=== PATIENT | male | born 1950 | race Caucasian/White ===

== ENCOUNTER → 2017-04-18 | Outpatient (CLI) | payer OTHER | LOC: BMCIMAGING 11:03 | PROVIDERS: ATTEND Podiatrist Foot & Ankle Surgery | DX: M19.071 Primary osteoarthritis, right ankle and foot (principal) ==

== ENCOUNTER 2018-07-18 11:10 | Day surgery (SDC) | payer OTHER ==
[2018-07-18] MEDS ORDERED: LIDOCAINE 1% 300 MG/30 ML SDV ONE (11:26)
[2018-07-18] MEDS ORDERED: BUPIVACAINE 0.5% 30 ML SDV ONE (11:27)
[2018-07-18] MEDS ORDERED: LR 1,000 ML IV ONE (11:37)
[2018-07-18] MEDS ORDERED: ceFAZolin 2 GM/DEXTROSE 100 ML IV ONE (12:31)
[2018-07-18] MEDS ORDERED: MIDAZOLAM 2 MG/2 ML VIAL IVP ONE (12:44)
--- NOTE | 2018-07-18 12:44 | PDANEPAE ---
ANE History of Present Illness here for open l IHR ANE Past Medical History - Cardiovascular History Hx Hypertension: No Hx Arrhythmias: No Hx Chest Pain: No Hx Coronary Artery / Peripheral Vascular Disease: No Hx CHF / Valvular Disease: No Hx Palpitations: No - Pulmonary History Hx COPD: No Hx Asthma/Reactive Airway Disease: No Hx Recent Upper Respiratory Infection: No Hx Oxygen in Use at Home: No Hx Sleep Apnea: No - Neurologic History Hx Cerebrovascular Accident: No Hx Seizures: No Hx Dementia: No - Endocrine History Hx Diabetes: No - Renal History Hx Renal Disorders: No - Liver History Hx Hepatic Disorders: No - Neurological & Psychiatric Hx Hx Neurological and Psychiatric Disorders: No - Cancer History Hx Cancer: No - Congenital Disorder History Hx Congenital Disorders: No - GI History Hx Gastrointestinal Disorders: No - Chronic Pain History Chronic Pain: No - Surgical History Prior Surgeries: Bicep tendon repair. Meniscus L knee. Appendectomy ANE Review of Systems Review of systems is: negative Review of Systems: - Exercise capacity Exercise capacity: >=4 METS METS (RN): 6 METS ANE Patient History - Allergies Allergies/Adverse Reactions: No Known Allergies Allergy (Unverified 07/18/18 11:54) - Home Medications Home medications: home medication list seen and reviewed Home Medications: Multivitamins 07/18/18 [Last Taken 07/16/18] [place] 07/18/18 [Last Taken 07/16/18] Trace Minerals 07/18/18 [Last Taken 07/16/18] - NPO status NPO Status: no food or drink >8 hours NPO Since - Liquids (Date): 07/18/18 NPO Since - Liquids (Time): 09:00 NPO Since - Solids (Date): 07/17/18 NPO Since - Solids (Time): 12:00 - Anes Hx Anes Hx: no prior problems - Smoking Hx Smoking Status: Never smoked - Family Anes Hx Family Hx Anesthesia Complications: None. ANE Labs/Vital Signs - Vital Signs Vital Signs: reviewed preoperatively; see RN documention for details Blood Pressure: 140/90 Heart Rate: 74 Respiratory Rate: 18 O2 Sat (%): 93 Height: 177.8 cm Weight: 79.379 kg ANE Physical Exam - Airway Neck exam: FROM Mallampati Score: Class 1 Mouth exam: normal dental/mouth exam - Pulmonary Pulmonary: no respiratory distress, clear to auscultation - Cardiovascular Cardiovascular: regular rate and rhythym - ASA Status ASA Status: II ANE Anesthesia Plan Anesthesia Plan: GA w LMA
[2018-07-18] MEDS ORDERED: PROPOFOL/EMULSION 500 MG/50 ML BOTTLE IV ONE (13:00)
[2018-07-18] MEDS ORDERED: fentaNYL 100 MCG/2 ML INJ ONE (13:03)
[2018-07-18] MEDS ORDERED: PROPOFOL 200 MG/20 ML VIAL ONE (13:24)
[2018-07-18] MEDS ORDERED: DEXAMETHASONE 4 MG/ML VIAL ONE (13:26)
[2018-07-18] MEDS ORDERED: ONDANSETRON 4 MG/2 ML VIAL ONE (13:26)
[2018-07-18] MEDS ORDERED: NS 500 ML IV PRN (13:44)
[2018-07-18] MEDS ORDERED: oxyCODONE IR 5 MG TAB PO PRN (13:44)
[2018-07-18] MEDS ORDERED: DEXAMETHASONE 4 MG/ML VIAL IVP PRN (13:44)
[2018-07-18] MEDS ORDERED: NALOXONE HCL 0.4 MG/ML INJ IVP PRN (13:44)
[2018-07-18] MEDS ORDERED: ACETAMINOPHEN 500 MG TAB PO PRN (13:44)
[2018-07-18] MEDS ORDERED: ONDANSETRON 4 MG/2 ML VIAL IVP PRN (13:44)
[2018-07-18] MEDS ORDERED: HYDROCODONE/APAP 5/325 TAB PO PRN (13:44)
[2018-07-18] MEDS ORDERED: HYDROmorphONE/DILAUDID 1 MG/ML INJ IVP PRN (13:44)
[2018-07-18] MEDS ORDERED: fentaNYL 100 MCG/2 ML INJ IVP PRN (13:44)
[2018-07-18] MEDS ORDERED: PHENYLEPHRINE HCL 100 MCG/ML SYR ONE (14:22)
--- NOTE | 2018-07-18 14:27 | POSTOPPROG ---
Post Op Note Date of Operation: 07/18/18 Surgeon: Woody Dean Anesthesiologist: Dr. Roberts Anesthesia: LMA Pre-op Diagnosis: Incarcerated LIH Post-op Diagnosis: same Procedure: Open LIHR Findings: Incarc sigmoid, viable Inf/Abcess present in the surg proc area at time of surgery?: No EBL: Minimal
[2018-07-18] MEDS ORDERED: oxyCODONE IR 5 MG TAB ONE (15:30)
--- NOTE | 2018-07-18 15:35 | POSTANESTH ---
Post Anesthetic Evaluation Cardiovascular Status: Normal, Stable Respiratory Status: Normal, Stable Level of Consciousness/Mental Status: Can Participate in Eval Pain Control: Adequate, Prn Tx Ordered Nausea/Vomiting Control: Adequate, Prn Tx Ordered Complications Possibly Related to Anesthesia: None Noted
[2018-07-18 15:52] VITALS: BP 133/81
--- NOTE | 2018-07-18 19:39 | GOP ---
[f rep st] OPERATIVE REPORT DATE OF OPERATION: 07/18/2018 SURGEON: Roni Dean MD ANESTHESIA: Laryngeal mask anesthesia. ANESTHESIOLOGIST: Dr. Roberts. PREOPERATIVE DIAGNOSIS: Incarcerated left inguinal hernia. POSTOPERATIVE DIAGNOSIS: Incarcerated left inguinal hernia. PROCEDURE PERFORMED: Open repair of incarcerated left inguinal hernia. FINDINGS: The patient had incarcerated sigmoid colon. It was quite viable and easily reduced under anesthesia. The hernia itself was an indirect hernia. No other lesions were identified. ESTIMATED BLOOD LOSS: 20 cc. INDICATIONS: A 68-year-old male with a history of left inguinal hernia. The patient presented to the office with incarceration. Risks and benefits of procedure discussed with the patient, his questions were answered, he wished to proceed. DESCRIPTION OF PROCEDURE: The patient was placed in the supine position. After the induction of adequate IV sedation, the patient was prepped and draped in the standard surgical fashion. Marcaine 0.5% was injected throughout the left groin for local anesthesia. An oblique incision was made and carried to the subcutaneous tissue using cautery. The external oblique was incised in the direction of its fibers. The sigmoid colon was noted to be viable and was reduced. The cord was then surrounded at the pubic tubercle. The cord structures were then carefully dissected, preserving the vas and vessels. The hernia was then dissected down to preperitoneal fat and reduced. A standard extra-large plug and patch was used as mesh in this case, the plug attached to the transversalis with 2-O prolene. The patch was similarly attached to the pubic tubercle. Enough room was seen for the cord and an instrument tip. Good hemostasis was noted. The external oblique and Bill's were approximated using 3-0 Vicryl in a running fashion. Skin was closed with 5-0 Biosyn subcuticular. The wound was sterilely dressed, the patient was taken to the post-anesthesia care unit in stable condition. COMPLICATIONS: None. DRAINS: None. ADDENDUM: /[id number]/MODL MTDD
== END 2018-07-18 16:06 | disposition home or self-care (01) ==
LOC: FSGY 11:10
PROVIDERS: ATTEND Surgery
PROC: 0YQ60ZZ Repair Left Inguinal Region, Open Approach (ICD-10-PCS; principal; 2018-07-18 13:00)
DX: K40.30 Unilateral inguinal hernia, with obstruction, without gangrene, not specified as recurrent (principal)
CPT/HCPCS: C1781; J0690; J1100; J2250; J2370; J2405; J2704; J3010